=== PATIENT | male | born 1935 | race Caucasian/White ===

== ENCOUNTER 2017-01-28 05:44 | Inpatient (IN) | payer MEDICARE, OTHER ==
[2017-01-26 14:46] LABS: BASOPHILS 0.2 %; BASOPHILS ABSOLUTE 0.02 10/3/uL (0.0-0.16); EOSINOPHILS 1.5 %; EOSINOPHILS ABSOLUTE 0.12 10/3/uL (0.0-0.53); HEMOGLOBIN 16.6 g/dL (13.6-17.8); IMMATURE GRANULOCYTES 0.4 %; IMMATURE GRANULOCYTES ABSOLUTE 0.03 10/3/uL (0.0-0.11); LYMPHOCYTES ABSOLUTE 1.77 10/3/uL (0.67-4.30); MEAN CORPUS HGB CONC 36.1 g/dL (32.0-36.0); MEAN CORPUSCULAR HEMOGLOB 29.1 pg (26.0-34.0); MEAN CORPUSCULAR VOLUME 80.7 fL (80-100); MEAN PLATELET VOLUME 10.7 fL (9.2-13.0); MONOCYTES 8.3 %; MONOCYTES ABSOLUTE 0.67 10/3/uL (0.21-1.20); NEUTROPHILS 67.6 %; NEUTROPHILS ABSOLUTE 5.43 10/3/uL (2.02-8.40); PLATELET COUNT 211 10/3/uL (150-400); RBC DISTRIBUTION WIDTH 13.9 % (12.0-16.0)
[2017-01-26 14:48] LABS: MANUAL DIFF NO %
[2017-01-26 14:52] LABS: INTERNATIONAL NORMAL RATI 1.1 UNITS (-); PROTIME (NOT ORD) 13.6 SEC (12.0-14.5)
[2017-01-26 14:57] LABS: % IRON SAT 26 % (20-50); ALBUMIN 3.7 G/DL (3.5-5.0); ALKALINE PHOSPHATASE 64 U/L (45-117); BUN (BLOOD UREA NITROGEN) 10 MG/DL (6-23); CALCIUM, SERUM 8.6 MG/DL (8.5-10.4); CHLORIDE, SERUM 105 MMOL/L (96-112); CO2 (CARBON DIOXIDE) 25 MMOL/L (24-34); GFR AFRICAN AMERICAN 83 ML/MIN (>=60); GFR NON AFRICAN AMERICAN 71 ML/MIN (>=60); GLOBULIN 3.6 G/DL (2.5-4.1); GLUCOSE, SERUM 87 MG/DL (60-99); IRON BINDING CAPACITY 276 MCG/DL (250-450); IRON, SERUM 73 MCG/DL (35-150); SGOT(AST) 15 U/L (5-40); SGPT(ALT) 13 U/L (5-65); SODIUM, SERUM 139 MMOL/L (135-148); TOTAL BILIRUBIN 0.7 MG/DL (0-1.2); TOTAL PROTEIN 7.3 G/DL (6.0-8.5)
[2017-01-26 15:21] LABS: ASCORBIC ACID (UR NOT ORDER) NEG (NEG); BILIRUBIN, URINE NEGATIVE (NEG); KETONE, URINE NEGATIVE (NEG); LEUKOCYTE ESTERASE(NOT OR NEG (NEG); WBC (NOT ORDERED) (RFLEX) < 1 (0-5)
--- NOTE | ~2017-01-28 | OP ---
Record Of Operation [facility] [address] [place]. [address] NAME: MARCIAL MORENO : 39 STATUS : ADM IN PAT#: [id number] AGE: 81 ADM/REG DATE : 01/28/17 MR#: [id number] REPORT SERV DATE: 01/29/17 DICTATED BY: DMITRIY JOHNSON DATE: 01/28/17 REPORT STATUS : Draft TRANSCRIBED BY: MODL DATE: 01/28/17 DATE OF PROCEDURE: 01/28/2017 PREOPERATIVE DIAGNOSIS: Recurrent coronary artery disease with critical aortic valve stenosis, status post previous coronary artery bypass grafting. POSTOPERATIVE DIAGNOSIS: Recurrent coronary artery disease with critical aortic valve stenosis, status post previous coronary artery bypass grafting. OPERATIVE PROCEDURE: Redo sternotomy for redo coronary artery bypass grafting x 1, endoscopic vein harvest utilizing reverse saphenous vein graft from aorta to the first diagonal artery, aortic valve replacement with a 21 mm pericardial tissue valve, Rayo type, and preservation of left internal mammary artery graft to the LAD artery and preservation of vein graft to the right coronary artery, also, transesophageal echocardiography. OPERATIVE SURGEON: Dmitriy Johnson M.D. ANESTHESIA: General endotracheal anesthesia, AA. Chest tubes placed were 2. Pacing wire two on the right ventricle and two on the right atrium. PERTINENT HISTORY: The patient is a 81-year-old gentleman, status post coronary artery bypass grafting x4, performed in 1994 and now presents with recurrent coronary artery disease with critical aortic valve stenosis. OPERATIVE FINDINGS: The patient had severely stenotic and calcified trileaflet aortic valve. The ascending aorta was moderately calcified and endarterectomy was required. The left internal mammary artery graft was patent. The vein graft to the right coronary artery was patent. The vein graft to the diagonal artery was severely diseased patent. The vein graft to the obtuse marginal artery was occluded as was the obtuse marginal artery. OPERATIVE PROCEDURE: The patient was taken to the operating room, placed in supine position. Anesthesia was obtained. The patient was prepped and draped in the usual sterile fashion. Transesophageal Echocardiogram was performed demonstrating critical aortic stenosis and no significant mitral valvular heart disease. Greater saphenous vein harvested with an invasive technique and those wounds closed in a two-layer fashion. Midline sternotomy incision was made through the previous sternal scar. Sternal wires were removed, and oscillating saw was used to divide the sternum along the midline. Meticulous dissection was required to free the adhesion from the side of the sternum. Retractor was placed. The ascending aorta was dissected. Left internal mammary artery was identified and the right atrium was free of all adhesions. Heparin was then infused. The patient was started on cardiopulmonary bypass. Remaining adhesions were all lysed, freeing the entire heart and isolating the left internal mammary artery graft so that it could be clamped. Retrograde cardioplegic cannula was placed. The left ventricular vent was for the right superior pulmonary vein. An antegrade cardioplegia cannula was placed. Cross-clamp was applied. Cardioplegia was infused in antegrade fashion over period of 15 minutes. Clamp was placed Record Of Operation [place] [id number] [facility] [place]. [address] NAME: MARCIAL MORENO : 39 STATUS : ADM IN [facility]#: [id number] AGE: 81 ADM/REG DATE : 01/28/17 MR#: [id number] REPORT SERV DATE: 01/29/17 DICTATED BY: DMITRIY JOHNSON DATE: 01/28/17 REPORT STATUS : Draft TRANSCRIBED BY: ARMANDO DATE: 01/28/17 on the left internal mammary artery graft. The right coronary artery graft was preserved and it was still patent. The diagonal artery graft was diseased, it was excised, and the vein graft to the obtuse marginal artery was excised as it was totally occluded. The first diagonal artery bypassed with reverse saphenous vein graft in an end-to-side fashion. Vein graft was cut to the appropriate length. Aortotomy was then made in the aorta in a hockey stick fashion. Aortic valve was examined, found to be trileaflet and heavily calcified. The valve was excised and meticulous dissection required to free the adhesions and divide all the calcifications and remove it from the aortic annulus. A 21 mm size fit within the annulus. Two Ethibond pledgeted sutures were placed on the annulus of the aortic valve and passed through sewing ring of a 21 mm pericardial tissue valve, Rayo type. The valve was seated on the annulus. All sutures were tied with Cor-Knot. Endarterectomy performed of the ascending aorta so that it could adequately close. It was mildly calcified. The aortotomy was closed with running 4-0 Prolene suture. Cross-clamp was removed after the proximal anastomosis on the ascending aorta. A good hemostasis was noted. Two pacing wires were placed in the right ventricle and two in the right atrium and two chest tubes were placed. The patient was warmed to 36 centigrade, maintained a sinus bradycardic rhythm. He underwent atrial pacing. He was weaned from cardiopulmonary bypass. Protamine sulfate was infused. Hemostasis was adequate. The sternum was closed with four sternal cables. Soft tissue was closed in the usual manner. The patient tolerated the procedure well, was taken back to the ICU stable in condition. JORDI/ARMANDO Dmitriy Johnson M.D. / [id number] CC: Cuca Bynum M.D. [facility]
--- NOTE | ~2017-01-28 | DS ---
Discharge Summary [facility] [address] [place]. [address] NAME: MARCIAL MORENO : 39 STATUS : DIS IN PAT#: [id number] AGE: 81 ADM/REG DATE : 01/28/17 MR#: [id number] REPORT SERV DATE: 02/12/17 DICTATED BY: DMITRIY JOHNSON DATE: 02/11/17 REPORT STATUS : Draft TRANSCRIBED BY: ARMANDO DATE: 02/11/17 Data Collection from hospitalization DISCHARGE DIAGNOSES: 1. Recurrent coronary artery disease with critical aortic valve stenosis status post previous coronary artery bypass grafting. 2. Hypertension. 3. Type 2 diabetes mellitus. 4. Former smoker. 5. Hyperlipidemia. CONSULTATION: Dr. Riley Salcedo. PROCEDURES PERFORMED: Redo sternotomy for redo coronary artery bypass grafting x1; endoscopic vein harvest utilizing reverse saphenous vein graft from the aorta to the first diagonal artery; aortic valve replacement with a 21 mm pericardial tissue valve, Rayo type and preservation of left internal mammary artery graft to the LAD artery and preservation of vein graft to the right coronary artery; also transesophageal echocardiography, 01/28/2017. PATHOLOGY: Aortic valve valvuloplasty-fragments of calcified atheromata. DISCHARGE MEDICATIONS: Aspirin 162 mg daily, Catapres 0.3 mg twice a day, Patten 5/325 one to two tablets every six hours as needed, Avalide one tablet daily, Imdur 120 mg daily, Toprol- XL 50 mg daily, Prilosec 20 mg daily, Ranexa 1000 mg twice a day, Zocor 40 mg at bedtime. He was instructed not to continue aspirin 325 mg. CONDITION AT DISCHARGE: Stable. DISPOSITION: The patient was discharged home on a low-sodium, low-cholesterol, cardiac diet with activities as instructed. He would follow up with Dr. Ruddy Anaya, 02/04/2017. He would follow up with his primary care provider as needed. HOSPITAL COURSE: This is a 81-year-old man, who is status post coronary artery bypass grafting x4 in 1994. He presented at this time with recurrent coronary artery disease with critical aortic valve stenosis. Treatment options were discussed and it was elected to proceed with surgical intervention. He was admitted to the hospital at this time for further evaluation and treatment. Upon admission, he was taken to the operating room, where he underwent the above-mentioned procedure. He tolerated this well and there were no complications. On postop day #1, he was seen by Dr. Riley Salcedo. The patient was stable postoperatively. Low-dose nicardipine was being provided. He was in a sinus rhythm. Amiodarone was going to be given. He was also given aspirin and metoprolol. Nicardipine was being weaned. He was making slow progress. Urine output had decreased. Diuretic was going to be given. On 01/30/2017, creatinine level was 1.1. He had decreased urine output. Amiodarone would be held if heart rate was less than or equal to 55, and we would hold metoprolol for heart rate less than or equal to 60. Plavix was going to be resumed. IV Bumex was given. Chest tubes Discharge Summary [address] [address] NAME: MARCIAL MORENO : 39 STATUS : DIS IN PAT#: [id number] AGE: 81 ADM/REG DATE : 01/28/17 MR#: [id number] REPORT SERV DATE: 02/12/17 DICTATED BY: DMITRIY JOHNSON DATE: 02/11/17 REPORT STATUS : Draft TRANSCRIBED BY: ARMANDO DATE: 02/11/17 were discontinued. Pacing wires were removed. Urine output was improving. On 02/01/2017, he felt well. Nitroglycerin ointment was changed to Nitro-Dur. We encouraged him to ambulate. Discharge planning was performed. Clonidine was increased. His wounds looked okay. On 02/03/2017, he was feeling well. His blood pressure remained elevated. He had no new complaints. His wounds looked okay. Blood pressure medications were adjusted. Discharge instructions were given. Due to his improved and stable condition, he was discharged home with the above-stated instructions. Information collected by: Collette Mcleod I submit the above information as my discharge summary. CHRISTOS/ARMANDO Dmitriy Johnson M.D. / [id number] CC: Dmitriy Alex, M.Cuca Damian M.D.
[~2017-01-28 05:44] MED LIST: ASA5GR PO; ASAB PO; AVALIDE1 TA1 PO; CRESTOR40 MG PO; GLUCOPHXR PO; GLUCPH PO; IMDUR120 PO; PRILO PO; RANEXA1000 MG PO; VITC500 PO; ZOCOR40 PO
[2017-01-28 15:50] LABS: BE (BASE EXCESS) -1.9 MEQ/L (0 +/- 2.5); CARBOXYHEMOGLOBIN 0.5 % (0-3); HCO3 (ACTUAL BICARBONATE) 23.4 MEQ/L (23-27); HEMOBLOGIN CONTENT 13.4 G/DL (14-18); INSTRUMENT SERIAL # 11843; METHEMOGLOBIN 0.5 % (0-3); MODE SIMV; OPERATOR ID 13715; PCO2 (CO2 TENSION) 42 MMHG (35-45); PO2 (O2 TENSION) 95 MMHG (79-93); SAMPLE Arterial; TIDAL VOLUME 700 ML; pH 7.37 (7.37-7.43)
[2017-01-28 15:56] LABS: PLATELET COUNT 180 10/3/uL (150-400)
[2017-01-28 15:58] LABS: HEMOGLOBIN 12.5 g/dL (13.6-17.8)
[2017-01-28 16:04] LABS: INTERNATIONAL NORMAL RATI 1.3 UNITS (-); PARTIAL THROMBO TIME 34.9 SEC (22.5-37.2)
[2017-01-28 16:07] LABS: PROTIME (NOT ORD) 16.5 SEC (12.0-14.5)
[2017-01-28 16:09] LABS: BUN (BLOOD UREA NITROGEN) 12 MG/DL (6-23); CALCIUM, SERUM 8.5 MG/DL (8.5-10.4); CHLORIDE, SERUM 111 MMOL/L (96-112); CO2 (CARBON DIOXIDE) 25 MMOL/L (24-34); CREATININE 1.25 MG/DL (0.70-1.30); GFR AFRICAN AMERICAN 63 ML/MIN (>=60); GFR NON AFRICAN AMERICAN 54 ML/MIN (>=60); POTASSIUM, SERUM 3.7 MMOL/L (3.5-5.3)
[2017-01-28 16:10] LABS: GLUCOSE, SERUM 121 MG/DL (60-99); SODIUM, SERUM 146 MMOL/L (135-148)
[2017-01-28 16:35] LABS: INSTRUMENT SERIAL # 11843; pH 7.36 (7.37-7.43)
[2017-01-28 16:36] LABS: BE (BASE EXCESS) -1.9 MEQ/L (0 +/- 2.5); CARBOXYHEMOGLOBIN 0.4 % (0-3); HCO3 (ACTUAL BICARBONATE) 23.7 MEQ/L (23-27); HEMOBLOGIN CONTENT 13.9 G/DL (14-18); METHEMOGLOBIN 0.6 % (0-3); MODE SIMV; O2 CONTENT 19.2 VOL% (18-24); OPERATOR ID 13715; PCO2 (CO2 TENSION) 43 MMHG (35-45); PO2 (O2 TENSION) 143 MMHG (79-93); SAMPLE Arterial; TIDAL VOLUME 700 ML
[2017-01-28 21:26] LABS: HEMATOCRIT 34.1 % (40.0-51.0); HEMOGLOBIN 11.9 g/dL (13.6-17.8)
[2017-01-28 21:35] LABS: POTASSIUM, SERUM 4.2 MMOL/L (3.5-5.3)
[2017-01-29 02:51] LABS: BASOPHILS 0 %; EOSINOPHILS 0 %; HEMATOCRIT 31.2 % (40.0-51.0); HEMOGLOBIN 11.1 g/dL (13.6-17.8); IMMATURE GRANULOCYTES 0.5 %; IMMATURE GRANULOCYTES ABSOLUTE 0.07 10/3/uL (0.0-0.11); LYMPHOCYTES 3.7 %; LYMPHOCYTES ABSOLUTE 0.53 10/3/uL (0.67-4.30); MEAN CORPUS HGB CONC 35.6 g/dL (32.0-36.0); MEAN CORPUSCULAR HEMOGLOB 29.4 pg (26.0-34.0); MEAN CORPUSCULAR VOLUME 82.5 fL (80-100); MEAN PLATELET VOLUME 10.3 fL (9.2-13.0); MONOCYTES 7.2 %; MONOCYTES ABSOLUTE 1.04 10/3/uL (0.21-1.20); NEUTROPHILS 88.6 %; NEUTROPHILS ABSOLUTE 12.74 10/3/uL (2.02-8.40); PLATELET COUNT 162 10/3/uL (150-400); RBC DISTRIBUTION WIDTH 14.1 % (12.0-16.0); RED CELL COUNT 3.78 10/6/uL (4.7-6.1); WHITE BLOOD CELLS 14.4 10/3/uL (4.5-10.5)
[2017-01-29 02:52] LABS: MANUAL DIFF NO %
[2017-01-29 02:56] LABS: INTERNATIONAL NORMAL RATI 1.3 UNITS (-); PROTIME (NOT ORD) 15.6 SEC (12.0-14.5)
[2017-01-29 03:07] LABS: CALCIUM, SERUM 8.3 MG/DL (8.5-10.4); CHLORIDE, SERUM 115 MMOL/L (96-112); CO2 (CARBON DIOXIDE) 24 MMOL/L (24-34); CREATININE 1.28 MG/DL (0.70-1.30); GFR AFRICAN AMERICAN 61 ML/MIN (>=60); GFR NON AFRICAN AMERICAN 53 ML/MIN (>=60); POTASSIUM, SERUM 3.9 MMOL/L (3.5-5.3); SODIUM, SERUM 150 MMOL/L (135-148)
[2017-01-29 03:08] LABS: BUN (BLOOD UREA NITROGEN) 16 MG/DL (6-23); GLUCOSE, SERUM 96 MG/DL (60-99)
[2017-01-29 04:20] LABS: BE (BASE EXCESS) -1.6 MEQ/L (0 +/- 2.5); CARBOXYHEMOGLOBIN 0.3 % (0-3); HCO3 (ACTUAL BICARBONATE) 23.3 MEQ/L (23-27); HEMOBLOGIN CONTENT 12.8 G/DL (14-18); INSTRUMENT SERIAL # 11843; METHEMOGLOBIN 0.6 % (0-3); O2 CONTENT 17.1 VOL% (18-24); OPERATOR ID 32193; PCO2 (CO2 TENSION) 40 MMHG (35-45); PO2 (O2 TENSION) 86 MMHG (79-93); PRESSURE SUPPORT 5 cm.H2O; SAMPLE Arterial; pH 7.38 (7.37-7.43)
[2017-01-29 04:21] LABS: BE (BASE EXCESS) -3.2 MEQ/L (0 +/- 2.5); CARBOXYHEMOGLOBIN 0.2 % (0-3); DEVICE NC; HCO3 (ACTUAL BICARBONATE) 21.3 MEQ/L (23-27); HEMOBLOGIN CONTENT 12.3 G/DL (14-18); INSTRUMENT SERIAL # 11843; METHEMOGLOBIN 0.5 % (0-3); O2 CONTENT 16.6 VOL% (18-24); OPERATOR ID 32193; PCO2 (CO2 TENSION) 37 MMHG (35-45); PO2 (O2 TENSION) 91 MMHG (79-93); SAMPLE Arterial; pH 7.38 (7.37-7.43)
[2017-01-29 17:48] LABS: HEMATOCRIT 31.8 % (40.0-51.0)
[2017-01-29 17:49] LABS: POTASSIUM, SERUM 4.4 MMOL/L (3.5-5.3)
[2017-01-30 03:49] LABS: BASOPHILS 0 %; BASOPHILS ABSOLUTE 0.01 10/3/uL (0.0-0.16); EOSINOPHILS 0 %; HEMATOCRIT 32.2 % (40.0-51.0); HEMOGLOBIN 10.9 g/dL (13.6-17.8); IMMATURE GRANULOCYTES 0.7 %; IMMATURE GRANULOCYTES ABSOLUTE 0.14 10/3/uL (0.0-0.11); LYMPHOCYTES 3.5 %; LYMPHOCYTES ABSOLUTE 0.72 10/3/uL (0.67-4.30); MEAN CORPUS HGB CONC 33.9 g/dL (32.0-36.0); MEAN CORPUSCULAR HEMOGLOB 28.7 pg (26.0-34.0); MEAN CORPUSCULAR VOLUME 84.7 fL (80-100); MEAN PLATELET VOLUME 11.3 fL (9.2-13.0); MONOCYTES 11.2 %; MONOCYTES ABSOLUTE 2.31 10/3/uL (0.21-1.20); NEUTROPHILS 84.6 %; NEUTROPHILS ABSOLUTE 17.53 10/3/uL (2.02-8.40); PLATELET COUNT 206 10/3/uL (150-400)
[2017-01-30 03:50] LABS: WHITE BLOOD CELLS 20.7 10/3/uL (4.5-10.5)
[2017-01-30 03:51] LABS: MANUAL DIFF NO %
[2017-01-30 04:04] LABS: BUN (BLOOD UREA NITROGEN) 27 MG/DL (6-23); CALCIUM, SERUM 8.3 MG/DL (8.5-10.4); CHLORIDE, SERUM 112 MMOL/L (96-112); CO2 (CARBON DIOXIDE) 23 MMOL/L (24-34); CREATININE 1.16 MG/DL (0.70-1.30); GFR AFRICAN AMERICAN 69 ML/MIN (>=60); GFR NON AFRICAN AMERICAN 60 ML/MIN (>=60); GLUCOSE, SERUM 112 MG/DL (60-99); POTASSIUM, SERUM 4.9 MMOL/L (3.5-5.3); SODIUM, SERUM 144 MMOL/L (135-148)
[2017-01-30 17:26] LABS: POTASSIUM, SERUM 4.5 MMOL/L (3.5-5.3)
[2017-01-31 03:45] LABS: BASOPHILS 0.1 %; BASOPHILS ABSOLUTE 0.01 10/3/uL (0.0-0.16); EOSINOPHILS 0 %; HEMOGLOBIN 10.8 g/dL (13.6-17.8); IMMATURE GRANULOCYTES 0.3 %; IMMATURE GRANULOCYTES ABSOLUTE 0.04 10/3/uL (0.0-0.11); LYMPHOCYTES 5.9 %; LYMPHOCYTES ABSOLUTE 0.89 10/3/uL (0.67-4.30); MANUAL DIFF NO %; MEAN CORPUS HGB CONC 34.8 g/dL (32.0-36.0); MEAN CORPUSCULAR HEMOGLOB 29.2 pg (26.0-34.0); MEAN CORPUSCULAR VOLUME 83.8 fL (80-100); MEAN PLATELET VOLUME 10.6 fL (9.2-13.0); MONOCYTES 9.4 %; MONOCYTES ABSOLUTE 1.42 10/3/uL (0.21-1.20); NEUTROPHILS 84.3 %; NEUTROPHILS ABSOLUTE 12.79 10/3/uL (2.02-8.40); PLATELET COUNT 144 10/3/uL (150-400); RBC DISTRIBUTION WIDTH 14.7 % (12.0-16.0); WHITE BLOOD CELLS 15.2 10/3/uL (4.5-10.5)
[2017-01-31 03:54] LABS: CALCIUM, SERUM 8.1 MG/DL (8.5-10.4); CHLORIDE, SERUM 108 MMOL/L (96-112); CO2 (CARBON DIOXIDE) 24 MMOL/L (24-34); CREATININE 1.06 MG/DL (0.70-1.30); GFR AFRICAN AMERICAN 77 ML/MIN (>=60); GFR NON AFRICAN AMERICAN 66 ML/MIN (>=60); GLUCOSE, SERUM 130 MG/DL (60-99); POTASSIUM, SERUM 4.6 MMOL/L (3.5-5.3); SODIUM, SERUM 141 MMOL/L (135-148)
[2017-01-31 03:56] LABS: BUN (BLOOD UREA NITROGEN) 33 MG/DL (6-23)
[2017-02-01 05:49] LABS: BASOPHILS 0 %; EOSINOPHILS 0.1 %; EOSINOPHILS ABSOLUTE 0.01 10/3/uL (0.0-0.53); HEMATOCRIT 31.2 % (40.0-51.0); HEMOGLOBIN 10.9 g/dL (13.6-17.8); IMMATURE GRANULOCYTES 0.3 %; IMMATURE GRANULOCYTES ABSOLUTE 0.04 10/3/uL (0.0-0.11); LYMPHOCYTES 6.4 %; LYMPHOCYTES ABSOLUTE 0.74 10/3/uL (0.67-4.30); MEAN CORPUS HGB CONC 34.9 g/dL (32.0-36.0); MEAN CORPUSCULAR HEMOGLOB 29.1 pg (26.0-34.0); MEAN CORPUSCULAR VOLUME 83.2 fL (80-100); MEAN PLATELET VOLUME 10.9 fL (9.2-13.0); MONOCYTES 14.5 %; MONOCYTES ABSOLUTE 1.66 10/3/uL (0.21-1.20); NEUTROPHILS 78.7 %; NEUTROPHILS ABSOLUTE 9.03 10/3/uL (2.02-8.40); PLATELET COUNT 154 10/3/uL (150-400); RBC DISTRIBUTION WIDTH 14.1 % (12.0-16.0); RED CELL COUNT 3.75 10/6/uL (4.7-6.1); WHITE BLOOD CELLS 11.5 10/3/uL (4.5-10.5)
[2017-02-01 05:50] LABS: MANUAL DIFF NO %
[2017-02-01 05:57] LABS: CALCIUM, SERUM 8.1 MG/DL (8.5-10.4); CHLORIDE, SERUM 105 MMOL/L (96-112); CO2 (CARBON DIOXIDE) 25 MMOL/L (24-34); CREATININE 0.92 MG/DL (0.70-1.30); GFR AFRICAN AMERICAN 91 ML/MIN (>=60); GFR NON AFRICAN AMERICAN 79 ML/MIN (>=60); POTASSIUM, SERUM 4.1 MMOL/L (3.5-5.3); SODIUM, SERUM 140 MMOL/L (135-148)
[2017-02-01 05:58] LABS: BUN (BLOOD UREA NITROGEN) 27 MG/DL (6-23); GLUCOSE, SERUM 103 MG/DL (60-99)
[2017-02-02 05:32] LABS: BASOPHILS 0.1 %; BASOPHILS ABSOLUTE 0.01 10/3/uL (0.0-0.16); EOSINOPHILS 0.1 %; EOSINOPHILS ABSOLUTE 0.01 10/3/uL (0.0-0.53); HEMATOCRIT 32.9 % (40.0-51.0); HEMOGLOBIN 11.6 g/dL (13.6-17.8); IMMATURE GRANULOCYTES 0.7 %; IMMATURE GRANULOCYTES ABSOLUTE 0.07 10/3/uL (0.0-0.11); LYMPHOCYTES 9.9 %; LYMPHOCYTES ABSOLUTE 1.03 10/3/uL (0.67-4.30); MEAN CORPUS HGB CONC 35.3 g/dL (32.0-36.0); MEAN CORPUSCULAR HEMOGLOB 28.9 pg (26.0-34.0); MEAN PLATELET VOLUME 9.7 fL (9.2-13.0); MONOCYTES 14.6 %; MONOCYTES ABSOLUTE 1.51 10/3/uL (0.21-1.20); NEUTROPHILS 74.6 %; NEUTROPHILS ABSOLUTE 7.73 10/3/uL (2.02-8.40); PLATELET COUNT 189 10/3/uL (150-400); RBC DISTRIBUTION WIDTH 13.8 % (12.0-16.0); RED CELL COUNT 4.01 10/6/uL (4.7-6.1); WHITE BLOOD CELLS 10.4 10/3/uL (4.5-10.5)
[2017-02-02 05:33] LABS: MANUAL DIFF NO %
[2017-02-02 05:50] LABS: CALCIUM, SERUM 7.9 MG/DL (8.5-10.4); CHLORIDE, SERUM 106 MMOL/L (96-112); CO2 (CARBON DIOXIDE) 24 MMOL/L (24-34); CREATININE 0.95 MG/DL (0.70-1.30); GFR AFRICAN AMERICAN 88 ML/MIN (>=60); GFR NON AFRICAN AMERICAN 76 ML/MIN (>=60); GLUCOSE, SERUM 114 MG/DL (60-99); POTASSIUM, SERUM 3.9 MMOL/L (3.5-5.3); SODIUM, SERUM 139 MMOL/L (135-148)
[2017-02-02 05:55] LABS: BUN (BLOOD UREA NITROGEN) 18 MG/DL (6-23)
[2017-02-03] MEDS ORDERED: TOPXL50 PO (15:59)
[2017-02-03] MEDS ORDERED: CAT3 PO (16:00)
[2017-02-03] MEDS ORDERED: NORCO1 TA1 PO (16:01)
== END 2017-02-03 16:31 | disposition home or self-care (01) | DRG 220 ==
LOC: SDC/OF 05:44 → CVICU 13:31 → 5NO 01-31 15:12
PROVIDERS: Internal Medicine Cardiovascular Disease; Thoracic Surgery (Cardiothoracic Vascular Surgery)
PROC: B246ZZ4 Ultrasonography of Right and Left Heart, Transesophageal (ICD-10-PCS; 2017-01-28)
PROC: 4A033BC Measurement of Arterial Pressure, Coronary, Percutaneous Approach (ICD-10-PCS; 2017-01-28)
PROC: 021009W Bypass Coronary Artery, One Artery from Aorta with Autologous Venous Tissue, Open Approach (ICD-10-PCS; principal; 2017-01-28 07:30)
PROC: 02RF08Z Replacement of Aortic Valve with Zooplastic Tissue, Open Approach (ICD-10-PCS; 2017-01-28 07:30)
PROC: 06BQ0ZZ Excision of Left Saphenous Vein, Open Approach (ICD-10-PCS; 2017-01-28 07:30)
PROC: 5A1221Z Performance of Cardiac Output, Continuous (ICD-10-PCS; 2017-01-28 07:30)
DX: I35.0 Nonrheumatic aortic (valve) stenosis (principal); I25.810 Atherosclerosis of coronary artery bypass graft(s) without angina pectoris; I10 Essential (primary) hypertension; Z95.1 Presence of aortocoronary bypass graft; Z87.891 Personal history of nicotine dependence
CPT/HCPCS: 36415; 71010; 71020; 80048; 80053; 81001; 82330; 82803; 82805; 82947; 82962; 83036; 83540; 83550; 83735; 84132; 84295; 85014; 85018; 85025; 85049; 85347; 85610; 85730; 86850; 86900; 86901; 86920; 87641; 88305; 93005; 93312; 93320; 93325; 94002; 94640; 94660; 94770; A9270-GY; C1713; C1725; C1751; C1769; C1894; G0365; J0690; J1644; J1940; J2150; J2250; J2370; J2405; J2440; J2720; J2930; J3010; J3475; J3480; P9035; P9045; P9047; P9059